=== PATIENT | male | born 1945 | race Caucasian/White ===

== ENCOUNTER 2020-08-06 08:36 | Day surgery (SDC) | payer MEDICARE, OTHER ==
[~2020-08-06] VITALS: Ht 167.6 cm; Wt 85.4 kg
[~2020-08-06 08:36] MED LIST: ASPIR 8181 M1 PO; CLOB.05TC TOP; Flagyl500 MG PO; HYDCHL25 PO; HYDR1TAB94 PO; KETO10 PO; LEVFLO500 PO; LISI20 PO; MICROZIDE12.5 MG PO; Percocet 10-321 EACH PO; ROSU10TA PO; Synthroid50 MCG; TRIA80TC TOP
[2020-08-06] MEDS ORDERED: ATOR20 PO (09:37)
[2020-08-06] MEDS ORDERED: HYDROCODONE-AC1 EAC7 PO (09:39)
--- NOTE | 2020-08-06 10:12 | NUR ---
Ambulatory in Day Surgery Patient states colon prep results clear. History, Chart, Medications and Allergies reviewed before start of procedure. Lungs clear T/O to Auscultation. Pre-Op teaching done. Pt verbalizes understanding. Patient confirms NPO status and agrees with scheduled surgery. Patient States Post-Procedure ride home has been arranged.
--- NOTE | 2020-08-06 10:33 | NUR ---
08/06/20 1033 Lia Ruiz History, Chart, Medications and Allergies reviewed before start of procedure. Patient confirms NPO status and agrees with scheduled surgery. 3-LEAD EKG REVIEWED WITH PHYSICIAN PRIOR TO START OF PROCEDURE. MONITOR INTACT WITH CONTINUOUS PULSE OXIMETRY AND INTERMITTENT BP. PATIENT DETERMINED TO BE ASA APPROPRIATE FOR PROPOFOL SEDATION PRIOR TO START OF PROCEDURE BY .
--- NOTE | 2020-08-06 11:28 | NUR ---
Discharge instructions reviewed with patient. Patient verbalizes understanding. Copy given to patient to take home. Discharged via wheelchair to private car for ride home.
== END 2020-08-06 11:39 | disposition home or self-care (01) ==
LOC: ORSCMMR 08:36 → ORD 09:30 → ORSCMMR 11:39
PROVIDERS: Internal Medicine Gastroenterology
PROC: 0DBL8ZX Excision of Transverse Colon, Via Natural or Artificial Opening Endoscopic, Diagnostic (ICD-10-PCS; principal; 2020-08-06 09:30)
PROC: 0DBM8ZX Excision of Descending Colon, Via Natural or Artificial Opening Endoscopic, Diagnostic (ICD-10-PCS; principal; 2020-08-06 09:30)
PROC: 0DBK8ZX Excision of Ascending Colon, Via Natural or Artificial Opening Endoscopic, Diagnostic (ICD-10-PCS; principal; 2020-08-06 09:30)
PROC: 0DBP8ZX Excision of Rectum, Via Natural or Artificial Opening Endoscopic, Diagnostic (ICD-10-PCS; principal; 2020-08-06 09:30)
PROC: 0DBH8ZX Excision of Cecum, Via Natural or Artificial Opening Endoscopic, Diagnostic (ICD-10-PCS; principal; 2020-08-06 09:30)
DX: Z12.11 Encounter for screening for malignant neoplasm of colon (principal); Z86.010 Personal history of colon polyps; D12.0 Benign neoplasm of cecum; D12.2 Benign neoplasm of ascending colon; D12.3 Benign neoplasm of transverse colon; D12.4 Benign neoplasm of descending colon; D12.8 Benign neoplasm of rectum; K57.30 Diverticulosis of large intestine without perforation or abscess without bleeding; I10 Essential (primary) hypertension; E03.9 Hypothyroidism, unspecified; E78.00 Pure hypercholesterolemia, unspecified; Z79.899 Other long term (current) drug therapy
CPT/HCPCS: 88305; J2704; J7120

== ENCOUNTER → 2021-01-08 | Outpatient (CLI) | payer MEDICARE, OTHER ==
[~2021-01-08] MED LIST changes: +ATOR20 PO; +HYDROCODONE-AC1 EAC7 PO
[2021-01-15 09:10] LABS: HSV-1 DNA Negative (Negative); HSV-2 DNA Negative (Negative)
== END | disposition home or self-care (01) ==
LOC: LAB 17:30 → LAB SHORT 17:30
PROVIDERS: Physician Assistant Medical
DX: R21 Rash and other nonspecific skin eruption (principal)
CPT/HCPCS: 87529; 87798

== ENCOUNTER 2021-08-27 07:45 | Day surgery (SDC) | payer MEDICARE, OTHER ==
[~2021-08-27] VITALS: Ht 170.2 cm; Wt 83.9 kg
[2021-08-27] MEDS ORDERED: GABA300 PO (07:58)
[2021-08-27] MEDS ORDERED: METF500 PO (07:59)
[2021-08-27] MEDS ORDERED: Crestor20 MG PO (08:00)
[2021-08-27] MEDS ORDERED: LOSARTAN-HCTZ1 EAC3 PO (08:02)
[2021-08-27] MEDS ORDERED: ASPI81CH PO (08:07)
--- NOTE | 2021-08-27 08:18 | NUR ---
08/27/21 0818 Yanet Baptiste [id number]
== END 2021-08-27 09:08 | disposition home or self-care (01) ==
LOC: ORSCSDS 07:45
PROVIDERS: Ophthalmology
PROC: 08RK3JZ Replacement of Left Lens with Synthetic Substitute, Percutaneous Approach (ICD-10-PCS; principal; 2021-08-27 08:30)
DX: H25.12 Age-related nuclear cataract, left eye (principal); H21.81 Floppy iris syndrome; I10 Essential (primary) hypertension; E03.9 Hypothyroidism, unspecified; E78.00 Pure hypercholesterolemia, unspecified; Z79.84 Long term (current) use of oral hypoglycemic drugs; Z79.899 Other long term (current) drug therapy
CPT/HCPCS: 82947; J2001; J2250; J3010; J3301; J7040; J7120; V2632

== ENCOUNTER 2021-09-10 10:13 | Day surgery (SDC) | payer MEDICARE, OTHER ==
[~2021-09-10] VITALS: Ht 167.6 cm; Wt 83.6 kg
[~2021-09-10 10:13] MED LIST changes: +ASPI81CH PO; +Crestor20 MG PO; +GABA300 PO; +LOSARTAN-HCTZ1 EAC3 PO; +METF500 PO
== END 2021-09-10 11:50 | disposition home or self-care (01) ==
LOC: ORSCSDS 10:13
PROVIDERS: Ophthalmology
PROC: 08RJ3JZ Replacement of Right Lens with Synthetic Substitute, Percutaneous Approach (ICD-10-PCS; principal; 2021-09-10 11:30)
DX: H25.11 Age-related nuclear cataract, right eye (principal); I10 Essential (primary) hypertension; E11.9 Type 2 diabetes mellitus without complications; E03.9 Hypothyroidism, unspecified; Z87.891 Personal history of nicotine dependence; Z79.899 Other long term (current) drug therapy; Z79.4 Long term (current) use of insulin; Z79.82 Long term (current) use of aspirin
CPT/HCPCS: 82947; J2001; J2250; J3010; J3301; J7040; V2632

== ENCOUNTER 2022-07-19 11:11 | Day surgery (SDC) | payer MEDICARE, OTHER ==
[~2022-07-19] VITALS: Ht 170.2 cm; Wt 84.4 kg
[~2022-07-19 11:11] MED LIST changes: +LOVA20 PO
[2022-07-19 11:51] VITALS: BP 149/84
--- NOTE | 2022-07-19 12:26 | NUR ---
Ambulatory in Day Surgery[facility] Paws warming gown applied. Surgical site prepped with 2% Chlorhexidine cloth wipe. History, Chart, Medications and Allergies reviewed before start of procedure.Lungs clear T/O to Auscultation. Patient confirms NPO status and agrees with scheduled surgery. Pre-Op teaching done. Pt verbalizes understanding. Patient States Post-Procedure ride home has been arranged. Spiritual care visit conducted. I provided companionship, emotional support and prayer. Patient and or family unit engaged well and verbalized appreciation. Patient and or family unit displayed evidence of stabilization, catharsis, peace or sejal.
--- NOTE | 2022-07-19 13:43 | NUR ---
THE PATIENT'S PROCEDURE WAS CANCELLED BY DR. ULRICH, BECAUSE OF SORES ON HIS LOWER LEG.
== END 2022-07-19 13:46 | disposition home or self-care (01) ==
LOC: ORSCMMR 11:11 → ORD 12:00 → ORSCMMR 13:30 → ORD 13:45 → ORSCMMR 13:46 → ORD 14:00
DX: M17.11 Unilateral primary osteoarthritis, right knee (principal); Z53.9 Procedure and treatment not carried out, unspecified reason
CPT/HCPCS: A9270; J0171; J0690; J0735; J1885; J2704; J2795; J3010; J7120

== ENCOUNTER 2022-10-04 06:00 | Day surgery (SDC) | payer MEDICARE, OTHER ==
[2022-10-04] VITALS (11 sets, daily range): BP systolic 109–158; BP diastolic 58–86
[~2022-10-04] VITALS: Ht 167.6 cm; Wt 86.9 kg
--- NOTE | 2022-10-04 07:19 | NUR ---
History, Chart, Medications and Allergies reviewed before start of procedure. Lungs clear T/O to Auscultation. Patient confirms NPO status and agrees with scheduled surgery. Pre-Op teaching done. Pt verbalizes understanding. Patient reports completing Chlorhexadine shower X2 prior to admission to hospital.
--- NOTE | 2022-10-04 07:25 | NUR ---
PT AMB TO BATHROOM AND BACK WITHOUT ANY DIFFICULTY.
--- NOTE | 2022-10-04 11:25 | NUR ---
EDUCATED PT AND PT'S SO ON FIRE SAFETY BOTH VERBALIZED UNDERSTANDING.
--- NOTE | 2022-10-04 14:21 | NUR ---
THERAPY IN WITH PT.
--- NOTE | 2022-10-04 17:53 | NUR ---
SUMMARY NO ACUTE CHANGES SINCE ARRIVING TO UNIT FROM PACU. PT WORKED WITH THERAPY AND HAS BEEN SITTING UP IN RECLINER. AMBULATED TO RESTROOM, VOIDED AND HAD SMALL BM. SPOUSE BEDSIDE. CALL LIGHT IN REACH.
[2022-10-05 00:29] VITALS: BP 170/84
[2022-10-05 01:20] VITALS: BP 160/72
[2022-10-05 04:21] VITALS: BP 157/83
[2022-10-05 06:11] LABS: BASOPHILS ABSOLUTE AUTO 0.03 K/mm3 (0.00-0.23); BASOPHILS PERCENT AUTO 0 % (0-2); EOSINOPHILS ABSOLUTE AUTO 0.01 K/mm3 (0.00-0.68); EOSINOPHILS PERCENT AUTO 0 % (0-6); Hematocrit 31.4 % (37.0-53.0); Hemoglobin 10.6 g/dL (13.5-17.5); IMMATURE GRAN PERCENT AUTO 1 % (0-1); LYMPHOCYTES ABSOLUTE AUTO 1.85 K/mm3 (0.84-5.20); LYMPHOCYTES PERCENT AUTO 11 % (21-46); MONOCYTES ABSOLUTE AUTO 1.22 K/mm3 (0.16-1.47); MONOCYTES PERCENT AUTO 7 % (4-13); Mean Corpuscular HGB 30.8 pg (26.0-34.0); Mean Corpuscular HGB Conc 33.8 g/dL (31.5-36.5); Mean Corpuscular Volume 91 fL (80-100); Mean Platelet Volume 11.1 fL (9.1-12.4); NEUTROPHILS ABSOLUTE AUTO 13.89 K/mm3 (1.96-9.15); NEUTROPHILS PERCENT AUTO 81 % (41-73); Platelet Count 272 K/mm3 (150-400); RDW Coefficient Variation 13.9 % (11.7-14.2); Red Blood Cell Count 3.44 M/mm3 (4.30-5.90)
[2022-10-05 06:56] LABS: Bun/Creatinine Ratio 21.9 (12.0-20.0); Calcium, Blood 8.9 mg/dL (8.5-10.1); Creatinine, Blood 1.55 mg/dL (0.60-1.20); Magnesium, Blood 2.1 mg/dL (1.6-2.4); Potassium, Blood 3.9 mmol/L (3.5-5.5)
[2022-10-05 07:04] VITALS: BP 136/81
--- NOTE | 2022-10-05 07:30 | NUR ---
SHIFT SUMMARY POD#1 R.TKA NO ACUTE CHANGES THROUGH THE NIGHT, PT REMAINS A&O X4, ON RA,VSS, PAIN MANAGED PER EMAR, AMBULATING TO BATHROOM WITH NO PROBLEMS USINF FWW/GB, TOLERATING PO INTAKE, VOIDING WNL, POLAR PACK IN PLACE, DRSG C/D/I, IS AT THE BEDSIDE, PT & SPOUSE EDUCATED ON FIRE IGNITION & SAFETY, REPORT GIVEN TO DAY RN AT BEDSIDE, PT WAS ABLE TO ASK QUESTIONS, CALL LIGHT IN REACH.
--- NOTE | 2022-10-05 08:59 | NUR ---
working with therapy
[2022-10-05] MEDS ORDERED: ACET500 PO (10:32)
[2022-10-05] MEDS ORDERED: OXAYDO5 M1 PO (10:33)
--- NOTE | 2022-10-05 11:23 | NUR ---
DISCHARGED REVIEWED DC INSTRUCTIONS W/PT; VERBALIZED UNDERSTANDING. PT LEFT UNIT IN WC W/POSSESSIONS AND DC PAPERWORK IN HAND TO RIDE WAITING OUTSIDE, ACCOMPANIED BY SPOUSE AND ALTERATION WORKER.
== END 2022-10-05 11:14 | disposition home or self-care (01) ==
LOC: ORSCMMR 06:00 → ORD 07:30 → ORSCMMR 07:30 → SURS 10:06 → ORSCMMR 10-05 11:14
PROVIDERS: Orthopaedic Surgery
PROC: 0SRC0JA Replacement of Right Knee Joint with Synthetic Substitute, Uncemented, Open Approach (ICD-10-PCS; principal; 2022-10-04 07:30)
DX: M17.11 Unilateral primary osteoarthritis, right knee (principal); Z96.652 Presence of left artificial knee joint; I10 Essential (primary) hypertension; E03.9 Hypothyroidism, unspecified; Z79.899 Other long term (current) drug therapy; Z79.84 Long term (current) use of oral hypoglycemic drugs
CPT/HCPCS: 36415; 73560-RT; 80048; 83735; 85025; 97110-CQ; 97116-CQ; 97162; 97530; A9270; C1776; J0171; J0690; J0735; J1100; J1170; J1885; J2250; J2371; J2405; J2704; J2795; J3010; J7120